=== PATIENT | female | born 1945 | race Caucasian/White ===

== ENCOUNTER → 2016-12-07 | Outpatient (CLI) | payer MEDICARE, BC ==
--- NOTE | 2016-12-07 09:58 | RAD ---
Lumbar spine, 3 views, 12/07/2016: History: Back pain, follow-up after surgery Comparison is made to a study from 08/24/2016. Bilateral pedicle screws remain in place at L3, L4 and L5 attached to longitudinally oriented posterior fixation rods. There is an underlying laminectomy defect at this level. There is a mild grade 1 spondylolisthesis at L4-5 and a slight spondylolisthesis at L3-4 which appear to be unchanged. There is narrowing of the L3-4, L4-5 and L5-S1 disc spaces with moderate marginal spurring. There is minimal spurring in the upper lumbar spine. There is a mild lumbar scoliosis. Aortic calcific plaquing is present. IMPRESSION: Stable postsurgical and degenerative changes as described above.
== END | disposition home or self-care (01) ==
LOC: DXRADRC 08:58
PROVIDERS: ATTEND Neurological Surgery
DX: M54.5 Low back pain (principal)
CPT/HCPCS: 72100

== ENCOUNTER → 2017-03-08 | Outpatient (CLI) | payer MEDICARE, BC ==
--- NOTE | 2017-03-08 11:30 | RAD ---
Examination: 3 views of the lumbar spine History: History of follow-up lumbar surgery Comparison: 12/07/2016 Findings: Posterior fusion with pedicle screws identified at L3, L4, L5 vertebral levels grossly similar to prior exam. Mild grade 1 anterolisthesis of L4 on L5 and slight listhesis of L3 on L4 similar to prior exam. There is narrowing of the intervertebral disc spaces at L3-L4, L4-L5, L5-S1 vertebral levels with moderate osteophyte formation. Mild lumbar scoliosis. Impression: Unchanged degenerative changes and postoperative changes in the lumbar spine.
== END | disposition home or self-care (01) ==
LOC: DXRADRC 09:53
PROVIDERS: ATTEND Neurological Surgery
DX: M47.896 Other spondylosis, lumbar region (principal); M41.86 Other forms of scoliosis, lumbar region; M25.78 Osteophyte, vertebrae; Z98.890 Other specified postprocedural states
CPT/HCPCS: 72100

== ENCOUNTER → 2017-06-09 | Outpatient (CLI) | payer MEDICARE, BC ==
--- NOTE | 2017-06-09 10:57 | RAD ---
Indication postop. AP and lateral views of the lumbar spine were obtained. Comparison is made to an examination 3 months earlier. Postop changes and a spinal fixation cage are noted similar to the previous exam. No acute finding or significant change compared to the prior study is seen. Vascular calcification is noted IMPRESSION: Chronic changes. No acute finding. No significant change
== END | disposition home or self-care (01) ==
LOC: DXRADRC 10:32
PROVIDERS: ATTEND Neurological Surgery
DX: M48.8X6 Other specified spondylopathies, lumbar region (principal); Z98.890 Other specified postprocedural states
CPT/HCPCS: 72100

== ENCOUNTER → 2018-02-08 | Outpatient (CLI) | payer MEDICARE, BC ==
--- NOTE | 2018-02-08 12:22 | CARD ---
MR#: [id number] Date of Study: 02/08/2018 Ordering Physician: MANUEL GUAN, Referring Physician: MANUEL GUAN, Tech: CHANELL Quick APPROVED REPORT EXAM: Two-dimensional and M-mode echocardiogram with Doppler and color Doppler. Other Information Quality : Average Technically limited study due to body habitus. INDICATION Hypertension/HCVD 2D DIMENSIONS Left Atrium(2D)3.6 (1.6-4.0cm)IVSd0.9 (0.7-1.1cm) Aortic Root(2D)3.1 (2.0-3.7cm)LVDd6.3 (3.9-5.9cm) LVOT Diameter2.3 (1.8-2.4cm)PWd1.0 (0.7-1.1cm) LVDs4.7 (2.5-4.0cm)FS (%) 28.0 % SV102.7 mlLVEF(%)60.0 (>50%) Aortic Valve AoV Peak Juan Pablo.181.7cm/Marlene Peak GR.13.2mmHg LVOT Peak Juan Pablo.114.6cm/sAVA (VMAX)2.54cm2 Mitral Valve MV E Msausvab43.5cm/sMV DECEL [id number] MV A Wtbxntly29.5cm/sMV YDQ26hv E/A Ratio0.7MVA (PHT)5.11cm2 Tricuspid Valve TR P. Tvusmpvf611dq/sRAP IXQPDUBO5xkRl TR Peak Gr.86txTqRFUP46itPh LEFT VENTRICLE The Left Ventricle is mildly dilated. There is normal left ventricular wall thickness. The left ventr icular systolic function is normal and the ejection fraction is within normal range. The Ejection Fra ction is 60-65%. There is normal LV segmental wall motion. The left ventricular diastolic function an d filling is normal for age. RIGHT VENTRICLE The right ventricle is normal size. There is normal right ventricular wall thickness. The right ventr icular systolic function is normal. ATRIA The left atrium size is normal. The right atrium size is normal. The interatrial septum is intact wit h no evidence for an atrial septal defect or patent foramen ovale as noted on 2-D or Doppler imaging. AORTIC VALVE The aortic valve is trileaflet. Doppler and Color Flow revealed trace to mild aortic regurgitation. T here is no significant aortic valvular stenosis. MITRAL VALVE The mitral valve is normal in structure and function. There is no evidence of mitral valve prolapse. There is no mitral valve stenosis. Doppler and Color-flow revealed trace mitral regurgitation. TRICUSPID VALVE The tricuspid valve is normal in structure and function. Doppler and Color Flow revealed trace tricus pid regurgitation. There is no tricuspid valve stenosis. PULMONIC VALVE The pulmonic valve is not well visualized. Doppler and Color Flow revealed mild pulmonic valvular reg urgitation. There is no pulmonic valvular stenosis. GREAT VESSELS The aortic root is normal in size. The IVC is normal in size and collapses >50% with inspiration. PERICARDIAL EFFUSION There is no pleural effusion. There is no evidence of significant pericardial effusion. Critical Notification Critical Value: No <Conclusion> The left ventricular systolic function is normal and the ejection fraction is within normal range. The Ejection Fraction is 60-65%. There is normal LV segmental wall motion. Signed by : Michele Rincon, Electronically Approved : 02/08/2018 12:21:26
== END | disposition home or self-care (01) ==
LOC: ECHO 08:50
PROVIDERS: ATTEND Family Medicine
DX: I35.1 Nonrheumatic aortic (valve) insufficiency (principal)
CPT/HCPCS: 93306

== ENCOUNTER → 2018-02-21 | Outpatient (CLI) | payer MEDICARE, BC ==
--- NOTE | 2018-02-21 17:20 | RAD ---
Lumbar spine, 3 views, 02/21/2018: HISTORY: Chronic low back pain Comparison is made to a study from 06/09/2017. There is a mild lumbar scoliosis. There are bilateral pedicle screws at L3, L4 and L5 attached to longitudinally oriented posterior fixation rods. There is an underlying laminectomy defect through this region.There is mild anterolisthesis at L4-5 and to a lesser degree at L3-4 which is unchanged when compared to older studies such as 03/08/2017. There is disc space narrowing and spurring at L3-4, L4-5 and L5-S1. The upper lumbar disc spaces are well-maintained. No fracture is identified. A moderate amount stool is noted throughout the colon. IMPRESSION: Stable degenerative and postsurgical findings as described above. Electronically signed by: Mike Lowe MD (02/21/2018 5:17 PM) [facility]
== END | disposition home or self-care (01) ==
LOC: PMG 11:30
PROVIDERS: ATTEND Family Medicine
DX: M51.36 Other intervertebral disc degeneration, lumbar region (principal)
CPT/HCPCS: 72100

== ENCOUNTER → 2018-08-16 | Outpatient (CLI) | payer MEDICARE, BC ==
--- NOTE | 2018-08-16 15:45 | RAD ---
EXAM: Lumbar spine, 3 views. HISTORY: Pain. COMPARISON: 02/21/2018 FINDINGS: Frontal, lateral and coned sacral views of the lumbar spine are obtained. There is instrumented posterior spinal fusion and likely decompression at L3-L5. There is grade 1 anterolisthesis of L3 on L4 and L4-L5. There is degenerative endplate remodeling with disc space narrowing, osteophytosis, facet arthropathy and vacuum phenomenon at L5-S1. There is mild dextroscoliosis. IMPRESSION: 1. Instrumented fusion and laminectomy decompression at L3-L5. 2. Lumbar scoliosis and multilevel listhesis, stable in appearance. 3. Degenerative change primarily at the lumbosacral junction. Electronically signed by: Krystal Peraza MD (08/16/2018 3:41 PM) [email or web address]
== END | disposition home or self-care (01) ==
LOC: RAD 14:20
PROVIDERS: ATTEND Family Medicine
DX: M41.86 Other forms of scoliosis, lumbar region (principal); M47.897 Other spondylosis, lumbosacral region; Z98.1 Arthrodesis status
CPT/HCPCS: 72100

== ENCOUNTER → 2019-05-02 | Outpatient (CLI) | payer MEDICARE, BC ==
--- NOTE | 2019-05-02 16:41 | RAD ---
EXAM: AP pelvis, AP and lateral views left hip DATE: 05/02/2019 12:00 AM INDICATION: Left hip pain COMPARISON: No Prior FINDINGS/ IMPRESSION: 1. No evidence of acute fracture or dislocation. 2. Joint spaces are preserved without significant degenerative/proliferative change. 3. Large volume colonic stool content is seen particularly overlying the sacrum. 4. Symphysis pubis degenerative changes are seen. Electronically signed by: Tim Rojas MD (05/02/2019 4:38 PM) [facility]
== END | disposition home or self-care (01) ==
LOC: PMG 10:42
PROVIDERS: ATTEND Family Medicine
DX: M25.552 Pain in left hip (principal); K56.41 Fecal impaction; M89.8X8 Other specified disorders of bone, other site
CPT/HCPCS: 73502

== ENCOUNTER → 2019-11-07 | Outpatient (CLI) | payer MEDICARE, BC ==
--- NOTE | 2019-11-07 14:27 | RAD ---
EXAM: Bilateral knees, 3 views. HISTORY: Pain. COMPARISON: None. FINDINGS: 3 views of both knees are obtained. There is mild right lateral compartment predominant spurring of both knees. There is no fracture, dislocation or subluxation. There is trace right knee joint fluid. IMPRESSION: 1. Mild lateral compartment predominant tricompartmental osteophytes present both knees with suspected trace right knee effusion. 2. No acute osseous finding. Electronically signed by: Krystal Peraza MD (11/07/2019 2:23 PM) [facility] [place]
--- NOTE | 2019-11-07 14:27 | RAD ---
EXAM: Bilateral knees, 3 views. HISTORY: Pain. COMPARISON: None. FINDINGS: 3 views of both knees are obtained. There is mild right lateral compartment predominant spurring of both knees. There is no fracture, dislocation or subluxation. There is trace right knee joint fluid. IMPRESSION: 1. Mild lateral compartment predominant tricompartmental osteophytes present both knees with suspected trace right knee effusion. 2. No acute osseous finding. Electronically signed by: Krystal Peraza MD (11/07/2019 2:23 PM) [facility] [place]
== END | disposition home or self-care (01) ==
LOC: DXRAD 10:24
PROVIDERS: ATTEND Family Medicine
DX: M25.762 Osteophyte, left knee (principal); M25.761 Osteophyte, right knee
CPT/HCPCS: 73562

== ENCOUNTER → 2020-02-07 | Outpatient (CLI) | payer MEDICARE, BC ==
--- NOTE | 2020-02-07 13:19 | RAD ---
LUMBAR SPINE 2-3V History: Low back pain for one week Comparison: August 16, 2018 Findings: 3 views of the lumbar spine are similar. There is intact posterolateral fusion hardware with bilateral pedicle screws L3, L4, and L5 attached to intact vertical rods. Position of hardware is unchanged. There is subtle lucency near the distal aspect of the right L5 pedicle screw although similar. Lumbar vertebral body stature is maintained. There is moderate to severe degenerative disc disease at L2-3 which has progressed in the interval with development of vacuum disc disease. There is fairly advanced degenerative disc disease at L5-S1 as seen previously. There is similar minimal grade 1 anterior spondylolisthesis at L3-4 and L4-5. There is scattered plaque of the abdominal aorta. There is again mild levoscoliosis centered at L2-3. There is mild right lateral subluxation L4 relative to L5, overall unchanged. There has been cholecystectomy. Impression: 1. Compared with the 2018 exam, there has been progression of L2-3 degenerative disc disease. Otherwise findings are similar with intact posterolateral fusion hardware L3-L5 and advanced degenerative disc disease at L5-S1. There is abnormal alignment as stated. Electronically signed by: Prosper Au MD (02/07/2020 1:16 PM) [id number]
== END ==
LOC: PMG 12:42
PROVIDERS: ATTEND Family Medicine
DX: M51.37 Other intervertebral disc degeneration, lumbosacral region (principal)
CPT/HCPCS: 72100

== ENCOUNTER → 2020-11-08 | Outpatient (CLI) | payer MEDICARE, BC ==
--- NOTE | 2020-11-08 17:08 | RAD ---
EXAM: Lumbar spine, 3 views. HISTORY: Pain. COMPARISON: 02/07/2020 FINDINGS: 3 views lumbar spine are obtained. There is mild lumbar dextro scoliosis centered at L3. Th ere is instrumented posterior spinal fusion and laterally decompression at L3-L5. There is grade 1 an terolisthesis at the fused levels which is not appreciably changed compared to the prior study. There is no lucency surrounding the instrumentation to suggest loosening. There is stable grade 1 anteroli sthesis of L2 on L3. There is degenerative endplate remodeling with disc space narrowing and osteophy tosis L2-L3 and L5-S1. There is advanced facet arthropathy predominantly at the lumbosacral junction. IMPRESSION: 1. Instrumented fusion at L3-L5. 2. Multilevel degenerative change, primarily at L2-L3 and L5-S1. 3. Lumbar scoliosis and multilevel listhesis, described above. This is not appreciably changed compar ed to the prior exam. Electronically signed by: Krystal Peraza MD (11/08/2020 5:05 PM) [id number]
== END ==
LOC: PMG 11:32
PROVIDERS: ATTEND Family Medicine
DX: M47.817 Spondylosis without myelopathy or radiculopathy, lumbosacral region (principal); M41.86 Other forms of scoliosis, lumbar region; Z68.31 Body mass index [BMI] 31.0-31.9, adult
CPT/HCPCS: 72100

== ENCOUNTER → 2020-11-13 | Outpatient (CLI) | payer MEDICARE, BC ==
--- NOTE | 2020-11-13 13:41 | RAD ---
XR FOOT_RIGHT 3 VIEWS History: Reason: RIGHT FOOT PAIN / Spl. Instructions: / History: Comparison: None. Technique: 3 views the right foot Findings: No acute fracture or dislocation. Hammertoe deformities at each digit. Achilles insertion and plantar calcaneal enthesophytes. The Lisfranc is normally aligned. Mild degenerative changes at the interpha langeal joints and first metatarsophalangeal joint. No focal soft tissue swelling. No subcutaneous ai r or foreign body. Impression: 1. Degenerative changes of the right foot without acute osseous abnormality. Electronically signed by: Christopher Hernandez MD (11/13/2020 1:38 PM) [facility]
== END ==
LOC: DXRAD 10:25
PROVIDERS: ATTEND Podiatrist Foot & Ankle Surgery
DX: M19.071 Primary osteoarthritis, right ankle and foot (principal)
CPT/HCPCS: 73630

== ENCOUNTER → 2021-11-12 | Outpatient (CLI) | payer MEDICARE, BC ==
--- NOTE | 2021-11-12 16:31 | RAD ---
EXAM: XR FOOT_RIGHT 3 VIEWS 11/12/2021 10:37 AM CLINICAL INDICATION: Osteoarthritis, right midfoot pain COMPARISON: Right foot radiograph 11/14/2020 TECHNIQUE: AP, oblique, and lateral views of the right FINDINGS: No acute fracture. Alignment is normal. There is mild juxta-articular osteopenia. There is mild degenerative joint disease in the midfoot with small dorsal osteophytes, unchanged. Remaining j oint spaces are maintained. Prominent posterior process of the talus. Small calcaneal enthesophytes. No focal soft tissue abnormality. IMPRESSION: Unchanged mild degenerative joint disease of the midfoot. Electronically signed by: Marni Cunningham MD (11/12/2021 4:28 PM) [id number]
== END ==
LOC: RAD 10:27
PROVIDERS: ATTEND Podiatrist Foot & Ankle Surgery
DX: M19.071 Primary osteoarthritis, right ankle and foot (principal); M77.31 Calcaneal spur, right foot; M25.774 Osteophyte, right foot
CPT/HCPCS: 73630

== ENCOUNTER 2021-12-06 08:09 | Emergency (ER) | payer MEDICARE, BC ==
[~2021-12-06] VITALS: Ht 175.3 cm; Wt 92.7 kg
--- NOTE | 2021-12-06 08:44 | PHYS DOC ---
Adult General Chief Complaint Chief Complaint: DIARRHEA HPI HPI Pt is a 75 y/o female presenting to the ED c/o diarrhea onset 1 week ago. Pt has hx of Chrone's and reports about 4-6 episodes of diarrhea per day for the past week as well as lower abd pain. She states stool is black, but denies any hematochezia. Pt had one episode of emesis. Denies fever, chills, chest pain, or urinary sx. No further complaints at this time. Review of Systems Review of Systems Constitutional: Denies fever or chills Eyes: Denies change in visual acuity, redness, or eye pain HENT: Denies nasal congestion or sore throat Respiratory: Denies cough or shortness of breath Cardiovascular: No additional information not addressed in HPI GI: See HPI. Denies bloody stools : Denies dysuria or hematuria Musculoskeletal: Denies back pain or joint pain Integument: Denies rash or skin lesions Neurologic: Denies headache, focal weakness or sensory changes All other systems were reviewed and found to be within normal limits, except as documented in this note. Physical Exam Physical Exam Constitutional: Well developed, well nourished, no acute distress, non-toxic appearance. HENT: Wax in R ear. Normocephalic, atraumatic, bilateral external ears normal, oropharynx moist, no oral exudates, nose normal. Eyes: PERRLA, EOMI, conjunctiva normal, no discharge. Neck: Normal range of motion, no tenderness, supple, no stridor. Cardiovascular:Heart rate regular rhythm, no murmur Lungs & Thorax: Bilateral breath sounds clear to auscultation Abdomen: Diffuse tenderness. 20cm x 20cm lower abdominal mass. Bowel sounds normal, soft. Rectal: No stool obtained. Skin: Warm, dry, no erythema, no rash. Back: No tenderness, no CVA tenderness. Extremities: No tenderness, no cyanosis, no clubbing, ROM intact, no edema. Neurologic: Alert and oriented X 3, normal motor function, normal sensory function, no focal deficits noted. Psychologic: Affect normal, judgement normal, mood normal. Radiology/Procedures Radiology/Procedures [] Heart Score C/O Chest Pain: No Course & Med Decision Making Course & Med Decision Making Pertinent Labs and Imaging studies reviewed. (See chart for details) 0830: The pt was seen and evaluated and the H&P obtained. The results of the physical exam were discussed with the pt. 1100: I spoke with Dr. Fermin (Surgery) regarding the pts presentation. Reviewed all results and findings during stay in ED. 1102: I spoke with Dr. Clifton (Hospitalist) regarding the pt's case. Agrees with plan for admission. The pt remained hemodynamically stable while here in the ED and all questions were answered. The pt was admitted in fair condition. Departure Departure: Referrals: MANUEL GUAN MD (PCP) JAMIL RDZ MD Dec 06, 2021 08:43
[2021-12-06] MEDS ORDERED: 0.9 % SODIUM CHLORIDE 10 ML DISP.SYRIN. IV PRN (08:45)
[2021-12-06] MEDS ORDERED: IV NORMAL SALINE 1,000ML 1,000 ML IV SCH (08:45)
[2021-12-06] MEDS ORDERED: IOHEXOL 300 MG/ML 75 ML VIAL. IV ONE (09:00)
[2021-12-06 09:16] LABS: BASO % 0 % (0-3); EOS # 0.2 x10^3/uL (0.0-0.7); EOS % 2 % (0-3); HEMATOCRIT 33.9 % (36.0-47.0); LYMPH # 1.9 x10^3/uL (1.0-4.8); LYMPH % 19 % (24-48); MEAN CORPUSCULAR HEMOGLOBIN 29 pg (25-35); MEAN CORPUSCULAR HGB CONC 32 g/dL (31-37); MEAN CORPUSCULAR VOLUME 88 fL (79-100); MONO # 0.6 x10^3/uL (0.0-1.1); MONO % 6 % (0-9); NEUT % 73 % (31-73); PLATELET COUNT 272 x10^3/uL (140-400); RED BLOOD COUNT 3.85 x10^6/uL (3.50-5.40); RED CELL DISTRIBUTION WIDTH 14.5 % (11.5-14.5); WHITE BLOOD COUNT 9.7 x10^3/uL (4.0-11.0)
[2021-12-06 09:19] LABS: CALCIUM 9.1 mg/dL (8.5-10.1); CREATININE 0.7 mg/dL (0.6-1.0); GFR 81.8; POTASSIUM 3.8 mmol/L (3.5-5.1)
[2021-12-06 09:25] LABS: ALBUMIN 3.6 g/dL (3.4-5.0); ALBUMIN/GLOBULIN RATIO 0.9 (1.0-1.7); TOTAL BILIRUBIN 0.5 mg/dL (0.2-1.0); TOTAL PROTEIN 7.5 g/dL (6.4-8.2)
--- NOTE | 2021-12-06 10:06 | RAD ---
Exam: CT abdomen/pelvis with intravenous contrast Indication: Abdominal pain and mass, diarrhea for one week Comparison: CT abdomen pelvis 12/07/2011 Technique: Helical CT imaging performed of the abdomen and pelvis after the intravenous administratio n of contrast. Sagittal and coronal reformats were obtained. One or more of the following individualized dose reduction techniques were utilized for this examinat ion: 1. Automated exposure control 2. Adjustment of the mA and/or kV according to patient size 3. Use of iterative reconstruction technique. Findings: Lower chest: There is calcified granuloma in the right lower lobe. Unchanged 4 mm pulmonary nodule in the left lower lobe requiring no follow-up. Liver: Normal. Gallbladder/Biliary Tree: The gallbladder is surgically absent. Bile ducts are normal. Pancreas: Normal. Spleen: The spleen is normal in size. There are calcified splenic granulomas. Adrenal Glands: Normal. Kidneys/Ureters/Bladder: The kidneys are normal in size and enhance symmetrically. There are bilatera l peripelvic cysts. No hydronephrosis. Ureters are normal where visualized. The urinary bladder is no rmal. Reproductive Organs: Uterus is surgically absent. There is no adnexal mass. Stomach, small bowel, and colon: There is a very large volume of stool and barium in the colon, parti cularly in the sigmoid colon which is very distended measuring up to 10.8 cm. Mild fat stranding aurea g the sigmoid colon and rectum There is a transition point at the rectosigmoid junction. There is dif fuse wall thickening of the rectum. Vasculature: Abdominal aorta is normal in caliber. Mild calcified atherosclerosis. Lymph Nodes: There are abnormal lymph nodes in the pelvis adjacent to the sigmoid colon. One measures 1.1 x 1.2 cm (image 58, series 2). There are also mildly enlarged aortocaval and common iliac chain lymph nodes. For example, an aortocaval lymph node measuring 1.8 x 0.8 cm (image 50, series 2). There are several mildly enlarged bilateral external iliac chain lymph node, for example one on the left m easuring 1.5 x 1.0 cm. There are abnormal enlarged pelvic sidewall lymph nodes. For example, right pe lvic sidewall lymph node measuring 2.6 x 1.5 cm (image 73). A left pelvic sidewall lymph node measuri ng 2.7 x 1.1 cm (image 70). Prominent bilateral inguinal lymph nodes. Peritoneum and retroperitoneum: No free fluid or free air. Bones: There is straightening of lordosis. Surgical changes of posterior fusion L3-L5. Severe degener ative disc disease at L5-S1. There is lumbar scoliosis. No acute osseous abnormality. Miscellaneous: Small fat-containing umbilical hernia. IMPRESSION: 1. Markedly distended sigmoid colon with large volume of stool and barium throughout the colon. Ther e is a transition point at the rectosigmoid junction and mild wall thickening of the rectum. Findings raise concern for distal bowel obstruction secondary to a rectal mass. There is mild inflammation al oscar the sigmoid colon and rectum. 2. Mild lymphadenopathy in the lower abdomen and pelvis. Electronically signed by: Marni Cunningham MD (12/06/2021 10:04 AM) [id number]
[2021-12-06 10:12] LABS: COLOR,URINE YELLOW
[2021-12-06 10:13] LABS: BACTERIA,URINE 0 /HPF (0-FEW); CLARITY,URINE CLEAR; GLUCOSE,URINE NEG (NEG); NITRITE,URINE NEG (NEG); RBC,URINE OCC /HPF (0-2); SQUAMOUS EPITHELIAL CELL,UR FEW /LPF; UROBILINOGEN,URINE 0.2 mg/dL (0.2 mg/dL)
[2021-12-06 13:59] VITALS: BP 150/110
== END 2021-12-06 14:15 | disposition short-term general hospital (02) ==
LOC: ER 08:09
DX: R19.7 Diarrhea, unspecified (principal); R19.09 Other intra-abdominal and pelvic swelling, mass and lump; Z20.822 Contact with and (suspected) exposure to COVID-19
CPT/HCPCS: 36415; 74177; 80053; 81001; 83690; 85025; 87426; 96360; 99285; C9803; J7030; Q9967; U0003